=== PATIENT | female | born 1995 | race Caucasian/White ===

== ENCOUNTER 2019-09-10 16:50 | Emergency (ER) | payer OTHER ==
[~2019-09-10] VITALS: Ht 165.1 cm; Wt 43.1 kg
[2019-09-10] MEDS ORDERED: PROZAC20 M1 PO (17:06)
[2019-09-10] MEDS ORDERED: VISTARIL 25 MG25 M1 PO (17:06)
[2019-09-10 18:36] VITALS: BP 125/85
== END 2019-09-10 18:37 | disposition home or self-care (01) ==
LOC: M.ERS 16:50
DX: G43.909 Migraine, unspecified, not intractable, without status migrainosus (principal); N80.9 Endometriosis, unspecified; R11.2 Nausea with vomiting, unspecified; Z88.8 Allergy status to other drugs, medicaments and biological substances